=== PATIENT | female | born 1950 | race Caucasian/White ===

== ENCOUNTER → 2017-04-28 | Outpatient (CLI) | payer MEDICARE | LOC: RAD 14:36 | PROVIDERS: ATTEND Neurological Surgery | DX: Z02.9 Encounter for administrative examinations, unspecified (principal) ==

== ENCOUNTER → 2017-04-30 | Outpatient (CLI) | payer MEDICARE | END | disposition home or self-care (01) | LOC: RAD 12:13 | PROVIDERS: ATTEND Neurological Surgery | DX: M41.85 Other forms of scoliosis, thoracolumbar region (principal); M43.28 Fusion of spine, sacral and sacrococcygeal region; M43.26 Fusion of spine, lumbar region | CPT/HCPCS: 72082 ==

== ENCOUNTER → 2018-06-09 | Outpatient (CLI) | payer MEDICARE | END | disposition home or self-care (01) | LOC: RAD 14:18 | PROVIDERS: ATTEND Neurological Surgery | DX: M41.85 Other forms of scoliosis, thoracolumbar region (principal) | CPT/HCPCS: 72082 ==

== ENCOUNTER 2019-05-20 13:47 | Outpatient (CLI) | payer MEDICARE | END 2019-05-20 23:59 | disposition home or self-care (01) | LOC: CFH 13:47 | PROVIDERS: ATTEND Neurological Surgery | DX: M41.85 Other forms of scoliosis, thoracolumbar region (principal) | CPT/HCPCS: 72082 ==